=== PATIENT | male | born 1945 | race Caucasian/White ===

== ENCOUNTER → 2019-11-13 | Outpatient (CLI) | payer MEDICARE | END | disposition home or self-care (01) | LOC: RESCLI 02:14 | DX: J44.9 Chronic obstructive pulmonary disease, unspecified (principal); E55.9 Vitamin D deficiency, unspecified; I10 Essential (primary) hypertension; E11.9 Type 2 diabetes mellitus without complications; E11.40 Type 2 diabetes mellitus with diabetic neuropathy, unspecified; N40.0 Benign prostatic hyperplasia without lower urinary tract symptoms; D64.9 Anemia, unspecified; G47.30 Sleep apnea, unspecified; Z95.2 Presence of prosthetic heart valve; Z79.899 Other long term (current) drug therapy; Z98.890 Other specified postprocedural states; Z79.01 Long term (current) use of anticoagulants; Z87.891 Personal history of nicotine dependence; Z88.8 Allergy status to other drugs, medicaments and biological substances ==

== ENCOUNTER → 2019-12-16 | Outpatient (CLI) | payer MEDICARE ==
[2019-12-16 16:33] LABS: INTERNATIONAL NORM RATIO 2.7 (2.0-3.5)
== END | disposition home or self-care (01) ==
LOC: RESCLI 00:50
PROVIDERS: Internal Medicine; ATTEND Student in an Organized Health Care Education/Training Program
DX: R11.0 Nausea (principal); J44.9 Chronic obstructive pulmonary disease, unspecified; E11.42 Type 2 diabetes mellitus with diabetic polyneuropathy; G47.30 Sleep apnea, unspecified; M25.561 Pain in right knee; I10 Essential (primary) hypertension; E11.9 Type 2 diabetes mellitus without complications; E78.5 Hyperlipidemia, unspecified; Z79.01 Long term (current) use of anticoagulants; Z95.2 Presence of prosthetic heart valve; Z79.899 Other long term (current) drug therapy; Z98.890 Other specified postprocedural states; Z87.891 Personal history of nicotine dependence; Z88.8 Allergy status to other drugs, medicaments and biological substances; Z91.030 Bee allergy status

== ENCOUNTER → 2019-12-31 | Outpatient (CLI) | payer MEDICARE | END | disposition home or self-care (01) | LOC: RESCLI 10:47 | PROVIDERS: ATTEND Social Worker Clinical | DX: M25.561 Pain in right knee (principal); E11.42 Type 2 diabetes mellitus with diabetic polyneuropathy; I10 Essential (primary) hypertension; E78.5 Hyperlipidemia, unspecified; D69.6 Thrombocytopenia, unspecified; Z23 Encounter for immunization; Z79.899 Other long term (current) drug therapy; Z79.84 Long term (current) use of oral hypoglycemic drugs; Z96.651 Presence of right artificial knee joint; Z98.890 Other specified postprocedural states; Z87.891 Personal history of nicotine dependence ==

== ENCOUNTER → 2020-01-05 | Outpatient (CLI) | payer MEDICARE | END | disposition home or self-care (01) | LOC: NM 07:46 | PROVIDERS: ATTEND Internal Medicine Nephrology | DX: E11.42 Type 2 diabetes mellitus with diabetic polyneuropathy (principal); R11.0 Nausea ==

== ENCOUNTER 2020-02-18 13:19 | Emergency (ER) | payer MEDICARE ==
[~2020-02-18] VITALS: Wt 136.1 kg
[2020-02-18] MEDS ORDERED: CEPHALEXIN500 M1 PO (15:56)
[2020-02-18 16:22] LABS: INTERNATIONAL NORM RATIO 2.4 (2.0-3.5)
== END 2020-02-18 15:54 | disposition home or self-care (01) ==
LOC: ED 13:19
PROVIDERS: Physician Assistant
DX: S80.812A Abrasion, left lower leg, initial encounter (principal); Z91.030 Bee allergy status; Z88.5 Allergy status to narcotic agent; X58.XXXA Exposure to other specified factors, initial encounter; Y93.89 Activity, other specified; Y92.89 Other specified places as the place of occurrence of the external cause; Y99.8 Other external cause status

== ENCOUNTER 2020-03-16 09:32 | Emergency (ER) | payer MEDICARE ==
[~2020-03-16] VITALS: Ht 182.8 cm; Wt 136.1 kg
[~2020-03-16 09:32] MED LIST: CEPHALEXIN500 M1 PO
[2020-03-16 10:14] LABS: BASO # 0.1 10*3/uL (0.0-0.1); BASO % 0.9 % (0.0-1.0); EOS # 0.2 10*3/uL (0.0-0.4); EOS % 3.1 % (1.0-4.0); HEMATOCRIT 38.5 % (42.0-52.0); LYMPH # 1.4 10*3/uL (1.3-4.4); LYMPH % 20.6 % (27.0-41.0); MEAN CELL VOLUME 95.8 fl (80.0-94.0); MEAN CORPUSCULAR HGB 30.8 pg (27.0-31.0); MEAN CORPUSCULAR HGB CONC 32.2 g/dl (33.0-37.0); MEAN PLATELET VOLUME 12.9 fl (9.6-12.3); MONO # 0.7 10*3/uL (0.1-1.0); MONO % 10.1 % (3.0-9.0); NEUT # 4.5 10*3/uL (2.3-7.9); NEUT % 64.9 % (47.0-73.0); PLATELET COUNT AUTOMATED 92 10*3/uL (130-400); RED BLOOD COUNT 4.02 10*6/uL (4.50-5.90); RED CELL DISTRI WIDTH 13.4 % (0-14.5); WHITE BLOOD COUNT 6.9 10*3/uL (4.8-10.8)
[2020-03-16 10:23] LABS: INTERNATIONAL NORM RATIO 3.7 (2.0-3.5)
[2020-03-16 10:30] LABS: ALBUMIN 3.4 gm/dl (3.1-4.5); ALKALINE PHOSPHATASE 76 U/L (45-117); BUN 14 mg/dl (7-24); CHLORIDE 108 mmol/L (98-107); CREATININE 1.09 mg/dL (0.70-1.30); POTASSIUM 4.6 mmol/L (3.5-5.1); SGOT/AST 35 IU/L (3-35); SGPT/ALT 25 U/L (12-78); SODIUM 137 mmol/L (136-145); TOTAL PROTEIN 7.4 gm/dL (6.4-8.2)
== END 2020-03-16 11:44 | disposition home or self-care (01) ==
LOC: ED 09:32
PROVIDERS: Nurse Practitioner Family
DX: R04.0 Epistaxis (principal); I10 Essential (primary) hypertension; E11.9 Type 2 diabetes mellitus without complications; J44.9 Chronic obstructive pulmonary disease, unspecified; E78.00 Pure hypercholesterolemia, unspecified; G62.9 Polyneuropathy, unspecified; Z79.01 Long term (current) use of anticoagulants; Z91.013 Allergy to seafood; Z88.5 Allergy status to narcotic agent; Z79.2 Long term (current) use of antibiotics

== ENCOUNTER → 2020-03-19 | Outpatient (CLI) | payer MEDICARE ==
[2020-03-19 12:15] LABS: INTERNATIONAL NORM RATIO 1.8 (2.0-3.5)
== END | disposition home or self-care (01) ==
LOC: LAB 11:45
PROVIDERS: Student in an Organized Health Care Education/Training Program; ATTEND Internal Medicine
DX: Z79.01 Long term (current) use of anticoagulants (principal); Z95.4 Presence of other heart-valve replacement

== ENCOUNTER → 2020-03-23 | Outpatient (CLI) | payer MEDICARE ==
[2020-03-23 11:21] LABS: INTERNATIONAL NORM RATIO 3.1 (2.0-3.5)
== END | disposition home or self-care (01) ==
LOC: LAB 10:05
PROVIDERS: ATTEND Emergency Medicine
DX: Z79.01 Long term (current) use of anticoagulants (principal); Z95.4 Presence of other heart-valve replacement

== ENCOUNTER → 2020-03-29 | Outpatient (CLI) | payer MEDICARE | END | disposition home or self-care (01) | LOC: LAB 11:48 | PROVIDERS: ATTEND Student in an Organized Health Care Education/Training Program | DX: Z95.4 Presence of other heart-valve replacement (principal); Z79.01 Long term (current) use of anticoagulants ==

== ENCOUNTER → 2020-03-30 | Outpatient (CLI) | payer MEDICARE | END | disposition home or self-care (01) | LOC: RESCLI 00:19 | PROVIDERS: ATTEND Internal Medicine | DX: I10 Essential (primary) hypertension (principal); E11.9 Type 2 diabetes mellitus without complications; R79.1 Abnormal coagulation profile; E78.5 Hyperlipidemia, unspecified; G47.30 Sleep apnea, unspecified; D64.9 Anemia, unspecified; R11.0 Nausea; E11.42 Type 2 diabetes mellitus with diabetic polyneuropathy; Z79.01 Long term (current) use of anticoagulants; Z79.899 Other long term (current) drug therapy; Z88.8 Allergy status to other drugs, medicaments and biological substances ==

== ENCOUNTER → 2020-04-01 | Outpatient (CLI) | payer MEDICARE ==
[2020-04-01 09:42] LABS: INTERNATIONAL NORM RATIO 2.7 (2.0-3.5)
== END | disposition home or self-care (01) ==
LOC: LAB 09:11
PROVIDERS: Student in an Organized Health Care Education/Training Program; ATTEND Internal Medicine
DX: E11.9 Type 2 diabetes mellitus without complications (principal); D68.59 Other primary thrombophilia

== ENCOUNTER → 2020-04-06 | Outpatient (CLI) | payer MEDICARE ==
[2020-04-06 10:40] LABS: INTERNATIONAL NORM RATIO 2.2 (2.0-3.5)
== END | disposition home or self-care (01) ==
LOC: LAB 09:52
PROVIDERS: ATTEND Student in an Organized Health Care Education/Training Program
DX: Z79.01 Long term (current) use of anticoagulants (principal); Z95.4 Presence of other heart-valve replacement

== ENCOUNTER → 2020-04-14 | Outpatient (CLI) | payer MEDICARE ==
[2020-04-14 12:26] LABS: INTERNATIONAL NORM RATIO 3.3 (2.0-3.5)
== END | disposition home or self-care (01) ==
LOC: LAB 11:38
PROVIDERS: Student in an Organized Health Care Education/Training Program; ATTEND Internal Medicine
DX: Z79.01 Long term (current) use of anticoagulants (principal); Z95.4 Presence of other heart-valve replacement

== ENCOUNTER → 2020-04-20 | Outpatient (CLI) | payer MEDICARE ==
[2020-04-20 12:01] LABS: INTERNATIONAL NORM RATIO 3.3 (2.0-3.5)
== END | disposition home or self-care (01) ==
LOC: LAB 11:15
PROVIDERS: Student in an Organized Health Care Education/Training Program; ATTEND Emergency Medicine
DX: Z79.01 Long term (current) use of anticoagulants (principal); Z95.4 Presence of other heart-valve replacement

== ENCOUNTER → 2020-04-28 | Outpatient (CLI) | payer MEDICARE ==
[2020-04-28 12:36] LABS: INTERNATIONAL NORM RATIO 3.1 (2.0-3.5)
== END | disposition home or self-care (01) ==
LOC: LAB 11:40
PROVIDERS: ATTEND Student in an Organized Health Care Education/Training Program
DX: Z79.01 Long term (current) use of anticoagulants (principal); Z95.4 Presence of other heart-valve replacement

== ENCOUNTER → 2020-05-04 | Outpatient (CLI) | payer MEDICARE ==
[2020-05-04 11:59] LABS: BASO % 0.6 % (0.0-1.0); EOS # 0.1 10*3/uL (0.0-0.4); EOS % 2.1 % (1.0-4.0); HEMATOCRIT 38.1 % (42.0-52.0); LYMPH # 1.2 10*3/uL (1.3-4.4); LYMPH % 19.6 % (27.0-41.0); MEAN CELL VOLUME 93.6 fl (80.0-94.0); MEAN CORPUSCULAR HGB 30.2 pg (27.0-31.0); MEAN CORPUSCULAR HGB CONC 32.3 g/dl (33.0-37.0); MONO # 0.6 10*3/uL (0.1-1.0); NEUT # 4.2 10*3/uL (2.3-7.9); NEUT % 68.2 % (47.0-73.0); PLATELET COUNT AUTOMATED 95 10*3/uL (130-400); RED BLOOD COUNT 4.07 10*6/uL (4.50-5.90); RED CELL DISTRI WIDTH 13.3 % (0-14.5); WHITE BLOOD COUNT 6.2 10*3/uL (4.8-10.8)
[2020-05-04 12:11] LABS: INTERNATIONAL NORM RATIO 3.8 (2.0-3.5)
[2020-05-04 12:28] LABS: ALBUMIN 3.4 gm/dl (3.1-4.5); ALKALINE PHOSPHATASE 76 U/L (45-117); BUN 19 mg/dl (7-24); CHLORIDE 105 mmol/L (98-107); POTASSIUM 4.8 mmol/L (3.5-5.1); SGOT/AST 30 IU/L (3-35); SGPT/ALT 27 U/L (12-78); SODIUM 136 mmol/L (136-145); TOTAL PROTEIN 7.5 gm/dL (6.4-8.2)
== END | disposition home or self-care (01) ==
LOC: LAB 10:44
PROVIDERS: Student in an Organized Health Care Education/Training Program; ATTEND Emergency Medicine
DX: I10 Essential (primary) hypertension (principal); Z95.4 Presence of other heart-valve replacement; Z79.01 Long term (current) use of anticoagulants

== ENCOUNTER → 2020-05-06 | Outpatient (CLI) | payer MEDICARE | END | disposition home or self-care (01) | LOC: RESCLI 08:35 | PROVIDERS: ATTEND Internal Medicine Nephrology | DX: E11.9 Type 2 diabetes mellitus without complications (principal); E78.5 Hyperlipidemia, unspecified; I10 Essential (primary) hypertension; J44.9 Chronic obstructive pulmonary disease, unspecified; Z95.2 Presence of prosthetic heart valve; Z79.84 Long term (current) use of oral hypoglycemic drugs; Z79.899 Other long term (current) drug therapy; Z88.6 Allergy status to analgesic agent; Z88.8 Allergy status to other drugs, medicaments and biological substances; Z89.432 Acquired absence of left foot ==

== ENCOUNTER → 2020-05-12 | Outpatient (CLI) | payer MEDICARE ==
[2020-05-12 12:23] LABS: INTERNATIONAL NORM RATIO 2.9 (2.0-3.5)
[2020-05-13 12:07] LABS: CREATININE,URINE 84.8 mg/dL (Not Estab.)
== END | disposition home or self-care (01) ==
LOC: LAB 10:40
PROVIDERS: ATTEND Student in an Organized Health Care Education/Training Program
DX: E11.9 Type 2 diabetes mellitus without complications (principal); Z79.01 Long term (current) use of anticoagulants; Z95.4 Presence of other heart-valve replacement

== ENCOUNTER → 2020-05-17 | Outpatient (CLI) | payer MEDICARE ==
[2020-05-17 11:10] LABS: INTERNATIONAL NORM RATIO 2.6 (2.0-3.5)
== END | disposition home or self-care (01) ==
LOC: LAB 10:44
PROVIDERS: ATTEND Internal Medicine Nephrology
DX: Z79.01 Long term (current) use of anticoagulants (principal); Z95.4 Presence of other heart-valve replacement

== ENCOUNTER → 2020-05-26 | Outpatient (CLI) | payer MEDICARE ==
[2020-05-26 12:20] LABS: INTERNATIONAL NORM RATIO 2.7 (2.0-3.5)
== END | disposition home or self-care (01) ==
LOC: LAB 11:53
PROVIDERS: ATTEND Internal Medicine
DX: Z79.01 Long term (current) use of anticoagulants (principal); Z95.4 Presence of other heart-valve replacement

== ENCOUNTER → 2020-06-01 | Outpatient (CLI) | payer MEDICARE ==
[2020-06-01 11:58] LABS: INTERNATIONAL NORM RATIO 3.5 (2.0-3.5)
== END | disposition home or self-care (01) ==
LOC: LAB 11:07
PROVIDERS: ATTEND Student in an Organized Health Care Education/Training Program
DX: D69.6 Thrombocytopenia, unspecified (principal); D68.59 Other primary thrombophilia; Z79.01 Long term (current) use of anticoagulants

== ENCOUNTER → 2020-06-04 | Outpatient (CLI) | payer MEDICARE | END | disposition home or self-care (01) | LOC: RAD 01:00 | PROVIDERS: ATTEND Internal Medicine | DX: M25.561 Pain in right knee (principal); Z96.651 Presence of right artificial knee joint ==

== ENCOUNTER → 2020-06-17 | Outpatient (CLI) | payer MEDICARE ==
[2020-06-17 10:40] LABS: INTERNATIONAL NORM RATIO 3.3 (2.0-3.5)
== END | disposition home or self-care (01) ==
LOC: LAB 10:11
PROVIDERS: ATTEND Internal Medicine Nephrology
DX: D68.59 Other primary thrombophilia (principal); D69.6 Thrombocytopenia, unspecified; Z79.01 Long term (current) use of anticoagulants

== ENCOUNTER → 2020-07-13 | Outpatient (CLI) | payer MEDICARE ==
[2020-07-13 11:29] LABS: INTERNATIONAL NORM RATIO 3.1 (2.0-3.5)
== END | disposition home or self-care (01) ==
LOC: LAB 10:43
PROVIDERS: ATTEND Student in an Organized Health Care Education/Training Program
DX: D68.59 Other primary thrombophilia (principal); D69.6 Thrombocytopenia, unspecified; Z79.01 Long term (current) use of anticoagulants

== ENCOUNTER → 2020-07-14 | Outpatient (CLI) | payer MEDICARE | END | disposition home or self-care (01) | LOC: RESCLI 01:40 | PROVIDERS: ATTEND Internal Medicine Nephrology | DX: R42 Dizziness and giddiness (principal); I10 Essential (primary) hypertension; E11.9 Type 2 diabetes mellitus without complications; E78.5 Hyperlipidemia, unspecified; E55.9 Vitamin D deficiency, unspecified; L98.9 Disorder of the skin and subcutaneous tissue, unspecified; E11.42 Type 2 diabetes mellitus with diabetic polyneuropathy; K21.9 Gastro-esophageal reflux disease without esophagitis; Z95.2 Presence of prosthetic heart valve; Z79.84 Long term (current) use of oral hypoglycemic drugs; Z79.899 Other long term (current) drug therapy; Z98.890 Other specified postprocedural states; Z88.8 Allergy status to other drugs, medicaments and biological substances ==

== ENCOUNTER → 2020-07-16 | Outpatient (CLI) | payer MEDICARE ==
[2020-07-16 09:31] LABS: CHOLESTEROL 172 mg/dL (<200); HDL CHOLESTEROL 33 mg/dl (40-60); LDL CHOLESTEROL 113 mg/dL (9-159); TRIGLYCERIDES 128 mg/dl (<150); VLDL CHOLESTEROL 26 mg/dL (6-40)
== END | disposition home or self-care (01) ==
LOC: LAB 00:46
PROVIDERS: Student in an Organized Health Care Education/Training Program; ATTEND Family Medicine
DX: E78.5 Hyperlipidemia, unspecified (principal); E55.9 Vitamin D deficiency, unspecified; E11.9 Type 2 diabetes mellitus without complications

== ENCOUNTER → 2020-08-02 | Outpatient (CLI) | payer MEDICARE ==
[2020-08-02 13:32] LABS: INTERNATIONAL NORM RATIO 4.8 (2.0-3.5)
== END | disposition home or self-care (01) ==
LOC: LAB 11:11
PROVIDERS: Student in an Organized Health Care Education/Training Program; ATTEND Internal Medicine Nephrology
DX: D68.59 Other primary thrombophilia (principal); D69.6 Thrombocytopenia, unspecified; Z79.01 Long term (current) use of anticoagulants

== ENCOUNTER → 2020-08-05 | Outpatient (CLI) | payer MEDICARE ==
[2020-08-05 11:17] LABS: INTERNATIONAL NORM RATIO 2.5 (2.0-3.5)
== END | disposition home or self-care (01) ==
LOC: LAB 10:43
PROVIDERS: Student in an Organized Health Care Education/Training Program; ATTEND Internal Medicine Nephrology
DX: D68.8 Other specified coagulation defects (principal)

== ENCOUNTER → 2020-08-12 | Outpatient (CLI) | payer MEDICARE ==
[2020-08-12 11:41] LABS: INTERNATIONAL NORM RATIO 3.8 (2.0-3.5)
== END | disposition home or self-care (01) ==
LOC: LAB 11:12
PROVIDERS: Student in an Organized Health Care Education/Training Program; ATTEND Internal Medicine
DX: D68.59 Other primary thrombophilia (principal); D69.6 Thrombocytopenia, unspecified; Z79.01 Long term (current) use of anticoagulants

== ENCOUNTER → 2020-08-17 | Outpatient (CLI) | payer MEDICARE ==
[2020-08-17 12:18] LABS: INTERNATIONAL NORM RATIO 3.5 (2.0-3.5)
== END | disposition home or self-care (01) ==
LOC: LAB 11:26
PROVIDERS: Student in an Organized Health Care Education/Training Program; ATTEND Internal Medicine
DX: D68.59 Other primary thrombophilia (principal); D69.6 Thrombocytopenia, unspecified; Z79.01 Long term (current) use of anticoagulants

== ENCOUNTER → 2020-08-19 | Outpatient (CLI) | payer MEDICARE | END | disposition home or self-care (01) | LOC: RESCLI 02:04 | PROVIDERS: ATTEND Internal Medicine | DX: E78.5 Hyperlipidemia, unspecified (principal); E11.42 Type 2 diabetes mellitus with diabetic polyneuropathy; I10 Essential (primary) hypertension; J44.9 Chronic obstructive pulmonary disease, unspecified; E55.9 Vitamin D deficiency, unspecified; N40.0 Benign prostatic hyperplasia without lower urinary tract symptoms; D64.9 Anemia, unspecified; K21.9 Gastro-esophageal reflux disease without esophagitis; Z95.2 Presence of prosthetic heart valve; Z79.899 Other long term (current) drug therapy; Z98.890 Other specified postprocedural states; Z88.8 Allergy status to other drugs, medicaments and biological substances ==

== ENCOUNTER → 2020-08-24 | Outpatient (CLI) | payer MEDICARE | END | disposition home or self-care (01) | LOC: LAB 08:35 | PROVIDERS: ATTEND Student in an Organized Health Care Education/Training Program | DX: D64.9 Anemia, unspecified (principal) ==

== ENCOUNTER → 2020-09-24 | Outpatient (CLI) | payer MEDICARE ==
[2020-09-24 12:33] LABS: INTERNATIONAL NORM RATIO 2.7 (2.0-3.5)
== END | disposition home or self-care (01) ==
LOC: LAB 11:51
PROVIDERS: Student in an Organized Health Care Education/Training Program; ATTEND Family Medicine
DX: D68.59 Other primary thrombophilia (principal); D69.6 Thrombocytopenia, unspecified; Z79.01 Long term (current) use of anticoagulants

== ENCOUNTER → 2020-10-05 | Outpatient (CLI) | payer MEDICARE | END | disposition home or self-care (01) | LOC: CT 13:43 | PROVIDERS: ATTEND Internal Medicine Critical Care Medicine | DX: I51.7 Cardiomegaly (principal); K76.0 Fatty (change of) liver, not elsewhere classified; I25.10 Atherosclerotic heart disease of native coronary artery without angina pectoris ==

== ENCOUNTER → 2020-10-12 | Outpatient (CLI) | payer MEDICARE ==
[2020-10-12 12:20] LABS: INTERNATIONAL NORM RATIO 1.7 (2.0-3.5)
== END | disposition home or self-care (01) ==
LOC: LAB 10:36
PROVIDERS: ATTEND Student in an Organized Health Care Education/Training Program
DX: D68.59 Other primary thrombophilia (principal); D69.6 Thrombocytopenia, unspecified; Z79.01 Long term (current) use of anticoagulants

== ENCOUNTER → 2020-10-15 | Outpatient (CLI) | payer MEDICARE ==
[2020-10-15 11:50] LABS: INTERNATIONAL NORM RATIO 2.1 (2.0-3.5)
== END | disposition home or self-care (01) ==
LOC: LAB 11:19
PROVIDERS: Student in an Organized Health Care Education/Training Program; ATTEND Internal Medicine
DX: D68.59 Other primary thrombophilia (principal); D69.6 Thrombocytopenia, unspecified; Z79.01 Long term (current) use of anticoagulants

== ENCOUNTER → 2020-10-19 | Outpatient (CLI) | payer MEDICARE ==
[2020-10-19 12:00] LABS: INTERNATIONAL NORM RATIO 3.4 (2.0-3.5)
== END | disposition home or self-care (01) ==
LOC: LAB 11:33
PROVIDERS: ATTEND Student in an Organized Health Care Education/Training Program
DX: D68.59 Other primary thrombophilia (principal); D69.6 Thrombocytopenia, unspecified; Z79.01 Long term (current) use of anticoagulants

== ENCOUNTER → 2020-10-25 | Outpatient (CLI) | payer MEDICARE ==
[2020-10-25 13:09] LABS: INTERNATIONAL NORM RATIO 5.1 (2.0-3.5)
== END | disposition home or self-care (01) ==
LOC: LAB 11:29
PROVIDERS: Student in an Organized Health Care Education/Training Program; ATTEND Internal Medicine Nephrology
DX: D69.6 Thrombocytopenia, unspecified (principal); D68.59 Other primary thrombophilia; Z79.01 Long term (current) use of anticoagulants

== ENCOUNTER → 2020-10-28 | Outpatient (CLI) | payer MEDICARE ==
[2020-10-28 11:40] LABS: INTERNATIONAL NORM RATIO 2.9 (2.0-3.5)
== END | disposition home or self-care (01) ==
LOC: LAB 10:56
PROVIDERS: ATTEND Internal Medicine
DX: D69.6 Thrombocytopenia, unspecified (principal); D68.59 Other primary thrombophilia; Z79.01 Long term (current) use of anticoagulants

== ENCOUNTER → 2020-11-09 | Outpatient (CLI) | payer MEDICARE ==
[2020-11-09 13:52] LABS: INTERNATIONAL NORM RATIO 2.3 (2.0-3.5)
== END | disposition home or self-care (01) ==
LOC: LAB 11:40
PROVIDERS: ATTEND Student in an Organized Health Care Education/Training Program
DX: D69.6 Thrombocytopenia, unspecified (principal); D68.59 Other primary thrombophilia; Z79.01 Long term (current) use of anticoagulants

== ENCOUNTER → 2020-11-17 | Outpatient (CLI) | payer MEDICARE ==
[2020-11-17 11:10] LABS: INTERNATIONAL NORM RATIO 3.2 (2.0-3.5)
== END | disposition home or self-care (01) ==
LOC: LAB 10:43
PROVIDERS: ATTEND Student in an Organized Health Care Education/Training Program
DX: D68.59 Other primary thrombophilia (principal); Z79.01 Long term (current) use of anticoagulants

== ENCOUNTER → 2020-12-03 | Outpatient (CLI) | payer MEDICARE ==
[2020-12-03 11:27] LABS: INTERNATIONAL NORM RATIO 1.9 (2.0-3.5)
== END | disposition home or self-care (01) ==
LOC: LAB 10:47
PROVIDERS: Student in an Organized Health Care Education/Training Program; ATTEND Internal Medicine
DX: D69.6 Thrombocytopenia, unspecified (principal); D68.59 Other primary thrombophilia; Z79.01 Long term (current) use of anticoagulants

== ENCOUNTER → 2021-02-08 | Outpatient (CLI) | payer MEDICARE ==
[2021-02-08 11:52] LABS: INTERNATIONAL NORM RATIO 1.9 (2.0-3.5)
== END | disposition home or self-care (01) ==
LOC: LAB 11:21
PROVIDERS: Student in an Organized Health Care Education/Training Program; ATTEND Emergency Medicine
DX: D68.59 Other primary thrombophilia (principal); D69.6 Thrombocytopenia, unspecified; Z79.01 Long term (current) use of anticoagulants

== ENCOUNTER → 2021-02-28 | Outpatient (CLI) | payer MEDICARE | END | disposition home or self-care (01) | LOC: LAB 08:00 | PROVIDERS: ATTEND Nurse Practitioner Primary Care | DX: D50.9 Iron deficiency anemia, unspecified (principal) ==

== ENCOUNTER → 2021-02-28 | Outpatient (CLI) | payer MEDICARE | END | disposition home or self-care (01) | LOC: CARD 02:16 | PROVIDERS: ATTEND Nurse Practitioner Primary Care | DX: I10 Essential (primary) hypertension (principal); Z95.2 Presence of prosthetic heart valve ==

== ENCOUNTER → 2021-05-31 | Outpatient (CLI) | payer MEDICARE ==
[2021-05-31 15:13] LABS: INTERNATIONAL NORM RATIO 2.1 (2.0-3.5)
== END ==
LOC: LAB 14:48
PROVIDERS: ATTEND Internal Medicine
DX: Z95.2 Presence of prosthetic heart valve (principal)

== ENCOUNTER → 2021-06-08 | Outpatient (CLI) | payer MEDICARE | END | disposition home or self-care (01) | LOC: US 08:42 | PROVIDERS: ATTEND Internal Medicine | DX: K76.0 Fatty (change of) liver, not elsewhere classified (principal); R16.1 Splenomegaly, not elsewhere classified; E61.1 Iron deficiency; D69.6 Thrombocytopenia, unspecified ==

== ENCOUNTER → 2021-09-01 | Outpatient (CLI) | payer MEDICARE ==
[2021-09-01 12:56] LABS: BASO # 0.1 10*3/uL (0.0-0.1); BASO % 1.1 % (0.0-1.0); EOS # 0.2 10*3/uL (0.0-0.4); EOS % 2.9 % (1.0-4.0); HEMATOCRIT 50.3 % (42.0-52.0); LYMPH # 1.8 10*3/uL (1.3-4.4); LYMPH % 24.2 % (27.0-41.0); MEAN CELL VOLUME 94.9 fl (80.0-94.0); MEAN CORPUSCULAR HGB 31.7 pg (27.0-31.0); MEAN CORPUSCULAR HGB CONC 33.4 g/dl (33.0-37.0); MEAN PLATELET VOLUME 11.3 fl (9.6-12.3); MONO # 0.8 10*3/uL (0.1-1.0); MONO % 10.6 % (3.0-9.0); NEUT # 4.4 10*3/uL (2.3-7.9); NEUT % 60.5 % (47.0-73.0); PLATELET COUNT AUTOMATED 91 10*3/uL (130-400); RED CELL DISTRI WIDTH 16.4 % (0-14.5); RETICULOCYTE % 2.14 % (0.50-2.50); WHITE BLOOD COUNT 7.3 10*3/uL (4.8-10.8)
[2021-09-01 13:00] LABS: INTERNATIONAL NORM RATIO 2.5 (2.0-3.5)
[2021-09-01 13:06] LABS: BUN 14 mg/dl (7-24); CHLORIDE 107 mmol/L (98-107); CHOLESTEROL 166 mg/dL (<200); IRON 66 ug/dL (65-175); SGOT/AST 25 IU/L (3-35); SGPT/ALT 28 U/L (12-78); SODIUM 137 mmol/L (136-145); TOTAL IRON BINDING CAPACITY 403 ug/dl (250-450); TRIGLYCERIDES 99 mg/dl (<150)
[2021-09-01 13:07] LABS: ALKALINE PHOSPHATASE 83 U/L (45-117); LDL CHOLESTEROL 105 mg/dL (9-159); TOTAL PROTEIN 7.8 gm/dL (6.4-8.2)
[2021-09-02 10:08] LABS: CREATININE,URINE 70.5 mg/dL (Not Estab.)
== END | disposition home or self-care (01) ==
LOC: RESCLI 01:42
PROVIDERS: Student in an Organized Health Care Education/Training Program; ATTEND Internal Medicine
DX: E11.9 Type 2 diabetes mellitus without complications (principal); I10 Essential (primary) hypertension; D50.9 Iron deficiency anemia, unspecified; Z95.2 Presence of prosthetic heart valve

== ENCOUNTER → 2021-09-27 | Outpatient (CLI) | payer MEDICARE ==
[2021-09-27 11:58] LABS: INTERNATIONAL NORM RATIO 2.1 (2.0-3.5)
== END | disposition home or self-care (01) ==
LOC: LAB 11:26
PROVIDERS: Student in an Organized Health Care Education/Training Program; ATTEND Internal Medicine
DX: Z95.2 Presence of prosthetic heart valve (principal)

== ENCOUNTER → 2021-09-29 | Outpatient (CLI) | payer MEDICARE ==
[~2021-09-29] MED LIST changes: +AMOXICILLIN500 M3 PO; +CEFTRIAXON2 GM/50 ML IV; +ENALAPRIL5 MG PO; +ENOXAPARIN150 MG/1 M SC; +FLORASTOR250 MG PO; +GABAPENTIN100 M2 PO; +GLIPIZIDE5 MG PO; +IMODIUM A-D2 M2 PO; +JARDIANCE10 MG PO; +METFORMIN HCL500 M2 PO; +METOPROLOL25 MG PO; +NEURONTIN100 MG PO; +PERCOCET 5-3251 EACH PO; +PROAIR HFA8.5 GM INH; +PROTONIX40 MG PO; +TAMSULOSIN HCL0.4 MG PO; +VIBRAMYCIN HYC100 MG PO; +WARFARIN SOD5 MG PO
[2021-09-29 11:57] LABS: HEMATOCRIT 47.6 % (42.0-52.0); MEAN CELL VOLUME 96.7 fl (80.0-94.0); MEAN CORPUSCULAR HGB 32.5 pg (27.0-31.0); MEAN CORPUSCULAR HGB CONC 33.6 g/dl (33.0-37.0); MEAN PLATELET VOLUME 12.4 fl (9.6-12.3); PLATELET COUNT AUTOMATED 112 10*3/uL (130-400); RED BLOOD COUNT 4.92 10*6/uL (4.50-5.90); RED CELL DISTRI WIDTH 13.5 % (0-14.5); WHITE BLOOD COUNT 7.7 10*3/uL (4.8-10.8)
[2021-09-29 12:16] LABS: BASOPHILS 3 % (0-1); BURR CELLS FEW; PLATELET SUFFICIENCY LOW (NORMAL); POLYCHROMASIA SLIGHT; TOTAL CELLS COUNTED 100 #CELLS
== END | disposition home or self-care (01) ==
LOC: RESCLI 09:50
PROVIDERS: Student in an Organized Health Care Education/Training Program; ATTEND Internal Medicine
DX: I10 Essential (primary) hypertension (principal); R21 Rash and other nonspecific skin eruption; E11.42 Type 2 diabetes mellitus with diabetic polyneuropathy; E55.9 Vitamin D deficiency, unspecified; J44.9 Chronic obstructive pulmonary disease, unspecified; N40.0 Benign prostatic hyperplasia without lower urinary tract symptoms; G47.30 Sleep apnea, unspecified; E78.5 Hyperlipidemia, unspecified; K21.9 Gastro-esophageal reflux disease without esophagitis; J30.2 Other seasonal allergic rhinitis; D50.9 Iron deficiency anemia, unspecified; H61.20 Impacted cerumen, unspecified ear; E11.52 Type 2 diabetes mellitus with diabetic peripheral angiopathy with gangrene; Z79.01 Long term (current) use of anticoagulants; Z95.2 Presence of prosthetic heart valve; Z79.899 Other long term (current) drug therapy; Z88.8 Allergy status to other drugs, medicaments and biological substances

== ENCOUNTER 2021-10-16 12:49 | Emergency (ER) | payer MEDICARE ==
[~2021-10-16] VITALS: Wt 131.5 kg
[~2021-10-16 12:49] MED LIST changes: -AMOXICILLIN500 M3 PO; -CEFTRIAXON2 GM/50 ML IV; -ENALAPRIL5 MG PO; -ENOXAPARIN150 MG/1 M SC; -FLORASTOR250 MG PO; -GABAPENTIN100 M2 PO; -GLIPIZIDE5 MG PO; -IMODIUM A-D2 M2 PO; -JARDIANCE10 MG PO; -METFORMIN HCL500 M2 PO; -METOPROLOL25 MG PO; -NEURONTIN100 MG PO; -PERCOCET 5-3251 EACH PO; -PROAIR HFA8.5 GM INH; -PROTONIX40 MG PO; -TAMSULOSIN HCL0.4 MG PO; -VIBRAMYCIN HYC100 MG PO; -WARFARIN SOD5 MG PO
[2021-10-16 13:55] LABS: BASO # 0.1 10*3/uL (0.0-0.1); BASO % 1.2 % (0.0-1.0); EOS # 0.3 10*3/uL (0.0-0.4); EOS % 3.6 % (1.0-4.0); HEMATOCRIT 44.5 % (42.0-52.0); LYMPH # 1.6 10*3/uL (1.3-4.4); LYMPH % 21.7 % (27.0-41.0); MEAN CELL VOLUME 96.7 fl (80.0-94.0); MEAN CORPUSCULAR HGB CONC 34.2 g/dl (33.0-37.0); MEAN PLATELET VOLUME 11.8 fl (9.6-12.3); MONO # 0.9 10*3/uL (0.1-1.0); MONO % 12.2 % (3.0-9.0); NEUT # 4.5 10*3/uL (2.3-7.9); NEUT % 60.8 % (47.0-73.0); PLATELET COUNT AUTOMATED 97 10*3/uL (130-400); RED CELL DISTRI WIDTH 13.2 % (0-14.5); WHITE BLOOD COUNT 7.5 10*3/uL (4.8-10.8)
[2021-10-16] MEDS ORDERED: VIBRAMYCIN HYC100 MG PO (15:23)
[2021-10-16 15:31] LABS: ALKALINE PHOSPHATASE 77 U/L (45-117); BUN 14 mg/dl (7-24); CHLORIDE 106 mmol/L (98-107); POTASSIUM 4.1 mmol/L (3.5-5.1); SGOT/AST 31 IU/L (3-35); SGPT/ALT 25 U/L (12-78); SODIUM 137 mmol/L (136-145)
== END 2021-10-16 15:32 | disposition home or self-care (01) ==
LOC: ED 12:49
PROVIDERS: Internal Medicine
DX: S91.301A Unspecified open wound, right foot, initial encounter (principal); Z91.030 Bee allergy status; Z88.8 Allergy status to other drugs, medicaments and biological substances; X58.XXXA Exposure to other specified factors, initial encounter; Y93.89 Activity, other specified; Y92.89 Other specified places as the place of occurrence of the external cause; Y99.8 Other external cause status

== ENCOUNTER → 2021-10-21 | Outpatient (CLI) | payer MEDICARE ==
[~2021-10-21] MED LIST changes: +VIBRAMYCIN HYC100 MG PO
== END | disposition home or self-care (01) ==
LOC: WOUNDCARE 01:33
PROVIDERS: ATTEND Nurse Practitioner Family
DX: E11.621 Type 2 diabetes mellitus with foot ulcer (principal); L97.811 Non-pressure chronic ulcer of other part of right lower leg limited to breakdown of skin; E11.40 Type 2 diabetes mellitus with diabetic neuropathy, unspecified; I10 Essential (primary) hypertension; E78.5 Hyperlipidemia, unspecified; J44.9 Chronic obstructive pulmonary disease, unspecified; Z98.890 Other specified postprocedural states; Z90.49 Acquired absence of other specified parts of digestive tract; Z79.899 Other long term (current) drug therapy; Z87.891 Personal history of nicotine dependence

== ENCOUNTER → 2021-10-26 | Outpatient (CLI) | payer MEDICARE ==
[~2021-10-26] MED LIST changes: +AMOXICILLIN500 M3 PO; +CEFTRIAXON2 GM/50 ML IV; +ENALAPRIL5 MG PO; +ENOXAPARIN150 MG/1 M SC; +FLORASTOR250 MG PO; +GABAPENTIN100 M2 PO; +GLIPIZIDE5 MG PO; +IMODIUM A-D2 M2 PO; +JARDIANCE10 MG PO; +METFORMIN HCL500 M2 PO; +METOPROLOL25 MG PO; +NEURONTIN100 MG PO; +PERCOCET 5-3251 EACH PO; +PROAIR HFA8.5 GM INH; +PROTONIX40 MG PO; +TAMSULOSIN HCL0.4 MG PO; +WARFARIN SOD5 MG PO
== END | disposition home or self-care (01) ==
LOC: WOUNDCARE 02:57
PROVIDERS: ATTEND Nurse Practitioner Family
DX: E11.621 Type 2 diabetes mellitus with foot ulcer (principal); L97.511 Non-pressure chronic ulcer of other part of right foot limited to breakdown of skin; E11.40 Type 2 diabetes mellitus with diabetic neuropathy, unspecified; I10 Essential (primary) hypertension; E78.5 Hyperlipidemia, unspecified; J44.9 Chronic obstructive pulmonary disease, unspecified; Z98.890 Other specified postprocedural states; Z90.49 Acquired absence of other specified parts of digestive tract; Z79.899 Other long term (current) drug therapy; Z87.891 Personal history of nicotine dependence

== ENCOUNTER → 2021-11-02 | Outpatient (CLI) | payer MEDICARE | END | disposition home or self-care (01) | LOC: WOUNDCARE 01:28 | PROVIDERS: ATTEND Nurse Practitioner Family | DX: E11.621 Type 2 diabetes mellitus with foot ulcer (principal); L97.512 Non-pressure chronic ulcer of other part of right foot with fat layer exposed; L84 Corns and callosities; E11.40 Type 2 diabetes mellitus with diabetic neuropathy, unspecified; E78.5 Hyperlipidemia, unspecified; I10 Essential (primary) hypertension; J44.9 Chronic obstructive pulmonary disease, unspecified; Z90.49 Acquired absence of other specified parts of digestive tract; Z87.891 Personal history of nicotine dependence ==

== ENCOUNTER 2021-12-19 12:19 | Emergency (ER) | payer MEDICARE ==
[~2021-12-19] VITALS: Ht 182.8 cm; Wt 130.6 kg
[~2021-12-19 12:19] MED LIST changes: +ENOXAPARIN120 MG/0.2 SC
== END 2021-12-19 15:16 ==
LOC: ED 12:19
DX: S80.01XA Contusion of right knee, initial encounter (principal); J44.9 Chronic obstructive pulmonary disease, unspecified; E11.42 Type 2 diabetes mellitus with diabetic polyneuropathy; I10 Essential (primary) hypertension; K21.9 Gastro-esophageal reflux disease without esophagitis; E78.2 Mixed hyperlipidemia; E66.9 Obesity, unspecified; Z91.030 Bee allergy status; Z88.5 Allergy status to narcotic agent; Z79.2 Long term (current) use of antibiotics; Z79.899 Other long term (current) drug therapy; Z79.01 Long term (current) use of anticoagulants; Z68.30 Body mass index [BMI] 30.0-30.9, adult; Z96.653 Presence of artificial knee joint, bilateral; Z90.49 Acquired absence of other specified parts of digestive tract; Z98.890 Other specified postprocedural states; Z89.422 Acquired absence of other left toe(s); Z87.891 Personal history of nicotine dependence; X58.XXXA Exposure to other specified factors, initial encounter; Y93.89 Activity, other specified; Y92.89 Other specified places as the place of occurrence of the external cause; Y99.8 Other external cause status

== ENCOUNTER → 2021-12-28 | Outpatient (CLI) | payer MEDICARE | END | disposition home or self-care (01) | LOC: ORTHO 02:38 | PROVIDERS: ATTEND Orthopaedic Surgery | DX: T84.53XD Infection and inflammatory reaction due to internal right knee prosthesis, subsequent encounter (principal); M25.461 Effusion, right knee; X58.XXXD Exposure to other specified factors, subsequent encounter ==

== ENCOUNTER 2022-01-10 15:53 | Emergency (ER) | payer MEDICARE ==
[~2022-01-10] VITALS: Ht 182.8 cm; Wt 130.6 kg
[2022-01-10 17:52] LABS: BASO # 0.1 10*3/uL (0.0-0.1); EOS # 0.3 10*3/uL (0.0-0.4); EOS % 3.9 % (1.0-4.0); HEMATOCRIT 36.1 % (42.0-52.0); LYMPH # 1.2 10*3/uL (1.3-4.4); LYMPH % 17.1 % (27.0-41.0); MEAN CELL VOLUME 95.8 fl (80.0-94.0); MEAN CORPUSCULAR HGB 31.6 pg (27.0-31.0); MEAN PLATELET VOLUME 12.4 fl (9.6-12.3); MONO # 0.7 10*3/uL (0.1-1.0); MONO % 9.6 % (3.0-9.0); NEUT # 4.7 10*3/uL (2.3-7.9); NEUT % 67.7 % (47.0-73.0); PLATELET COUNT AUTOMATED 102 10*3/uL (130-400); RED BLOOD COUNT 3.77 10*6/uL (4.50-5.90)
[2022-01-10 18:07] LABS: CREATININE 1.77 mg/dL (0.70-1.30); POTASSIUM 3.7 mmol/L (3.5-5.1); TOTAL PROTEIN 7.3 gm/dL (6.4-8.2)
[2022-01-10 18:16] LABS: INTERNATIONAL NORM RATIO 4.8 (2.0-3.5)
== END 2022-01-10 19:50 | disposition home or self-care (01) ==
LOC: ED 15:53
PROVIDERS: Student in an Organized Health Care Education/Training Program
DX: S00.03XA Contusion of scalp, initial encounter (principal); M25.552 Pain in left hip; M25.551 Pain in right hip; M25.461 Effusion, right knee; D53.9 Nutritional anemia, unspecified; Z88.6 Allergy status to analgesic agent; Z79.899 Other long term (current) drug therapy; Z90.49 Acquired absence of other specified parts of digestive tract; Z98.890 Other specified postprocedural states; Z87.891 Personal history of nicotine dependence; W18.39XA Other fall on same level, initial encounter; Y93.89 Activity, other specified; Y92.89 Other specified places as the place of occurrence of the external cause; Y99.8 Other external cause status

== ENCOUNTER → 2022-03-15 | Outpatient (CLI) | payer MEDICARE ==
[2022-03-15 11:40] LABS: INTERNATIONAL NORM RATIO 1.9 (2.0-3.5)
== END | disposition home or self-care (01) ==
LOC: LAB 11:06
PROVIDERS: Student in an Organized Health Care Education/Training Program; ATTEND Family Medicine
DX: Z95.2 Presence of prosthetic heart valve (principal)

== ENCOUNTER → 2022-04-20 | Outpatient (CLI) | payer MEDICARE ==
[2022-04-20 11:40] LABS: INTERNATIONAL NORM RATIO 2.5 (2.0-3.5)
== END | disposition home or self-care (01) ==
LOC: LAB 10:55
PROVIDERS: ATTEND Student in an Organized Health Care Education/Training Program
DX: Z95.2 Presence of prosthetic heart valve (principal)

== ENCOUNTER → 2022-05-29 | Outpatient (CLI) | payer MEDICARE | END | disposition home or self-care (01) | LOC: ORTHO 00:58 | PROVIDERS: ATTEND Orthopaedic Surgery | DX: T84.53XD Infection and inflammatory reaction due to internal right knee prosthesis, subsequent encounter (principal); M25.461 Effusion, right knee; Y83.9 Surgical procedure, unspecified as the cause of abnormal reaction of the patient, or of later complication, without mention of misadventure at the time of the procedure ==

== ENCOUNTER → 2022-06-14 | Outpatient (CLI) | payer MEDICARE ==
[2022-06-14 11:43] LABS: BASO # 0.1 10*3/uL (0.0-0.1); BASO % 0.8 % (0.0-1.0); EOS # 0.3 10*3/uL (0.0-0.4); EOS % 3.5 % (1.0-4.0); LYMPH # 1.4 10*3/uL (1.3-4.4); LYMPH % 17.9 % (27.0-41.0); MEAN CELL VOLUME 89.2 fl (80.0-94.0); MEAN CORPUSCULAR HGB 27.3 pg (27.0-31.0); MEAN CORPUSCULAR HGB CONC 30.6 g/dl (33.0-37.0); MONO # 0.7 10*3/uL (0.1-1.0); MONO % 9.1 % (3.0-9.0); NEUT # 5.3 10*3/uL (2.3-7.9); NEUT % 68.1 % (47.0-73.0); PLATELET COUNT AUTOMATED 132 10*3/uL (130-400); RED CELL DISTRI WIDTH 16.4 % (0-14.5); WHITE BLOOD COUNT 7.7 10*3/uL (4.8-10.8)
[2022-06-14 11:53] LABS: INTERNATIONAL NORM RATIO 3.7 (2.0-3.5)
[2022-06-14 12:00] LABS: POTASSIUM 3.9 mmol/L (3.4-5.1)
== END | disposition home or self-care (01) ==
LOC: RESCLI 00:42
PROVIDERS: Student in an Organized Health Care Education/Training Program; ATTEND Internal Medicine
DX: I10 Essential (primary) hypertension (principal); E11.52 Type 2 diabetes mellitus with diabetic peripheral angiopathy with gangrene; E78.5 Hyperlipidemia, unspecified; B99.9 Unspecified infectious disease; M25.78 Osteophyte, vertebrae; M48.061 Spinal stenosis, lumbar region without neurogenic claudication; I70.0 Atherosclerosis of aorta; Z88.5 Allergy status to narcotic agent; Z91.030 Bee allergy status; Z87.891 Personal history of nicotine dependence; Z95.2 Presence of prosthetic heart valve; Z98.890 Other specified postprocedural states; Z79.84 Long term (current) use of oral hypoglycemic drugs; Z79.82 Long term (current) use of aspirin; Z79.899 Other long term (current) drug therapy

== ENCOUNTER → 2022-07-12 | Outpatient (CLI) | payer MEDICARE ==
[2022-07-12 12:22] LABS: INTERNATIONAL NORM RATIO 3.4 (2.0-3.5)
== END | disposition home or self-care (01) ==
LOC: LAB 11:51
PROVIDERS: ATTEND Student in an Organized Health Care Education/Training Program
DX: Z95.2 Presence of prosthetic heart valve (principal)

== ENCOUNTER → 2022-08-28 | Outpatient (CLI) | payer MEDICARE ==
[2022-08-28 14:21] LABS: INTERNATIONAL NORM RATIO 1.7 (2.0-3.5)
== END | disposition home or self-care (01) ==
LOC: LAB 13:51
PROVIDERS: ATTEND Student in an Organized Health Care Education/Training Program
DX: Z95.2 Presence of prosthetic heart valve (principal)

== ENCOUNTER → 2022-11-29 | Outpatient (CLI) | payer MEDICARE | END | disposition home or self-care (01) | LOC: ORTHO 02:24 | PROVIDERS: ATTEND Orthopaedic Surgery | DX: T84.53XD Infection and inflammatory reaction due to internal right knee prosthesis, subsequent encounter (principal); M25.461 Effusion, right knee; Y83.1 Surgical operation with implant of artificial internal device as the cause of abnormal reaction of the patient, or of later complication, without mention of misadventure at the time of the procedure ==

== ENCOUNTER → 2023-03-12 | Outpatient (CLI) | payer MEDICARE ==
[2023-03-12 10:50] LABS: BASO # 0.1 10*3/uL (0.0-0.1); BASO % 0.9 % (0.0-1.0); EOS # 0.4 10*3/uL (0.0-0.4); HEMATOCRIT 29.3 % (42.0-52.0); LYMPH # 1.5 10*3/uL (1.3-4.4); LYMPH % 17.4 % (27.0-41.0); MEAN CELL VOLUME 89.6 fl (80.0-94.0); MEAN CORPUSCULAR HGB 27.8 pg (27.0-31.0); MEAN CORPUSCULAR HGB CONC 31.1 g/dl (33.0-37.0); MEAN PLATELET VOLUME 12.8 fl (9.6-12.3); MONO # 0.9 10*3/uL (0.1-1.0); MONO % 10.2 % (3.0-9.0); NEUT # 5.8 10*3/uL (2.3-7.9); NEUT % 66.7 % (47.0-73.0); PLATELET COUNT AUTOMATED 139 10*3/uL (130-400); RED BLOOD COUNT 3.27 10*6/uL (4.50-5.90); RED CELL DISTRI WIDTH 14.4 % (0-14.5); WHITE BLOOD COUNT 8.7 10*3/uL (4.8-10.8)
[2023-03-12 11:01] LABS: URINE CREATININE RANDOM 74.3 mg/dL
[2023-03-12 11:44] LABS: POTASSIUM 3.9 mmol/L (3.4-5.1); TOTAL PROTEIN 6.7 gm/dL (6.0-8.0)
== END | disposition home or self-care (01) ==
LOC: RESCLI 01:45
PROVIDERS: Student in an Organized Health Care Education/Training Program; ATTEND Internal Medicine
DX: E11.42 Type 2 diabetes mellitus with diabetic polyneuropathy (principal); E11.52 Type 2 diabetes mellitus with diabetic peripheral angiopathy with gangrene; I10 Essential (primary) hypertension; E78.5 Hyperlipidemia, unspecified; J44.9 Chronic obstructive pulmonary disease, unspecified; B99.9 Unspecified infectious disease; E55.9 Vitamin D deficiency, unspecified; R53.81 Other malaise; Z95.2 Presence of prosthetic heart valve; Z79.84 Long term (current) use of oral hypoglycemic drugs; Z79.01 Long term (current) use of anticoagulants; Z98.890 Other specified postprocedural states; Z87.891 Personal history of nicotine dependence; Z88.5 Allergy status to narcotic agent; Z91.030 Bee allergy status; Z79.899 Other long term (current) drug therapy

== ENCOUNTER → 2023-03-23 | Outpatient (CLI) | payer MEDICARE | END | disposition home or self-care (01) | LOC: LAB 02:10 | PROVIDERS: ATTEND Student in an Organized Health Care Education/Training Program | DX: D50.9 Iron deficiency anemia, unspecified (principal); Z79.01 Long term (current) use of anticoagulants ==

== ENCOUNTER → 2023-04-04 | Outpatient (CLI) | payer MEDICARE | END | disposition home or self-care (01) | LOC: LAB 02:33 | PROVIDERS: ATTEND Student in an Organized Health Care Education/Training Program | DX: Z95.2 Presence of prosthetic heart valve (principal) ==

== ENCOUNTER → 2023-06-01 | Outpatient (CLI) | payer MEDICARE ==
[2023-06-01 10:22] LABS: BASO # 0.1 10*3/uL (0.0-0.1); BASO % 0.9 % (0.0-1.0); EOS # 0.2 10*3/uL (0.0-0.4); EOS % 2.8 % (1.0-4.0); HEMATOCRIT 26.3 % (42.0-52.0); LYMPH # 1.4 10*3/uL (1.3-4.4); LYMPH % 21.5 % (27.0-41.0); MEAN CORPUSCULAR HGB 24.1 pg (27.0-31.0); MEAN CORPUSCULAR HGB CONC 27.4 g/dl (33.0-37.0); MONO # 0.6 10*3/uL (0.1-1.0); MONO % 8.5 % (3.0-9.0); NEUT # 4.2 10*3/uL (2.3-7.9); NEUT % 65.5 % (47.0-73.0); PLATELET COUNT AUTOMATED 123 10*3/uL (130-400); RED BLOOD COUNT 2.99 10*6/uL (4.50-5.90); RED CELL DISTRI WIDTH 18.3 % (0-14.5); WHITE BLOOD COUNT 6.5 10*3/uL (4.8-10.8)
[2023-06-01 10:54] LABS: TOTAL PROTEIN 6.8 gm/dL (6.0-8.0)
[2023-06-01 10:55] LABS: VITAMIN D, 25-HYDROXY 21.1 ng/mL (30-100)
== END | disposition home or self-care (01) ==
LOC: LAB 02:54
PROVIDERS: ATTEND Nurse Practitioner Primary Care
DX: E11.52 Type 2 diabetes mellitus with diabetic peripheral angiopathy with gangrene (principal); N40.0 Benign prostatic hyperplasia without lower urinary tract symptoms; E55.9 Vitamin D deficiency, unspecified; N30.00 Acute cystitis without hematuria; E78.5 Hyperlipidemia, unspecified; D50.9 Iron deficiency anemia, unspecified; Z95.2 Presence of prosthetic heart valve

== ENCOUNTER → 2023-06-28 | Outpatient (CLI) | payer MEDICARE | END | disposition home or self-care (01) | LOC: LAB 01:27 | PROVIDERS: ATTEND Nurse Practitioner Primary Care | DX: Z95.2 Presence of prosthetic heart valve (principal); Z79.01 Long term (current) use of anticoagulants ==

== ENCOUNTER 2023-07-11 14:01 | Inpatient (IN) | payer MEDICARE ==
[~2023-07-11] VITALS: Ht 183 cm; Wt 130.6 kg
[2023-07-11] VITALS (14 sets, daily range): BP systolic 93–130; BP diastolic 34–72
[2023-07-11 15:00] LABS: HEMATOCRIT 25.2 % (42.0-52.0); MEAN CELL VOLUME 89.7 fl (80.0-94.0); MEAN CORPUSCULAR HGB 24.2 pg (27.0-31.0); MEAN PLATELET VOLUME 11.4 fl (9.6-12.3); PLATELET COUNT AUTOMATED 114 10*3/uL (130-400); RED BLOOD COUNT 2.81 10*6/uL (4.50-5.90); RED CELL DISTRI WIDTH 19.8 % (0-14.5); WHITE BLOOD COUNT 5.2 10*3/uL (4.8-10.8)
[2023-07-11 15:02] LABS: MANUAL DIFF REFLEX YES
[2023-07-11] MEDS ORDERED: Pantoprazole Sodium 40 MG VIAL IV ONE (15:05)
[2023-07-11 15:08] LABS: ACT PARTIAL THROMBO TIME 37.9 SECONDS (20.0-32.1)
[2023-07-11 15:20] LABS: ALKALINE PHOSPHATASE 98 U/L (46-116); BUN 14 mg/dl (9-23); CHLORIDE 110 mmol/L (98-107); POTASSIUM 3.5 mmol/L (3.4-5.1); TOTAL PROTEIN 6.1 gm/dL (6.0-8.0)
[2023-07-11 15:21] LABS: ATYPICAL LYMPHS 1 % (0-0); BASOPHILS 3 % (0-1); PLATELET SUFFICIENCY LOW (NORMAL); TOTAL CELLS COUNTED 100 #CELLS
[2023-07-11 15:22] LABS: BURR CELLS FEW; OVALOCYTES FEW; ROULEAUX SLIGHT
[2023-07-11 15:23] LABS: POLYCHROMASIA SLIGHT; SCHISTOCYTES FEW
[2023-07-11 15:23] LABS: FREE T4 0.93 ng/dl (0.89-1.76)
[2023-07-11 15:28] LABS: SGPT/ALT < 7 U/L (5-49)
[2023-07-11] MEDS ORDERED: FUROSEMIDE 20 MG/2 ML VIAL IV ONE ×3 (15:35→21:40)
[2023-07-11] MEDS ORDERED: LOPRESSOR25 MG PO (15:38)
[2023-07-11] MEDS ORDERED: Magnesium Hydroxide 30 ML UDC PO PRN (16:30)
[2023-07-11] MEDS ORDERED: TEMAZEPAM 15 MG CAP PO PRN (16:30)
[2023-07-11] MEDS ORDERED: DEXTROSE 10 % IN WATER 250 ML IV PRN (16:30)
[2023-07-11] MEDS ORDERED: ACETAMINOPHEN 650 MG SUPP R PRN (16:30)
[2023-07-11] MEDS ORDERED: ACETAMINOPHEN 325 MG TAB PO PRN (16:30)
[2023-07-11] MEDS ORDERED: BISACODYL 10 MG SUPP R PRN (16:30)
[2023-07-11] MEDS ORDERED: Ondansetron Hydrochloride 4 MG/2 ML VIAL IV PRN (16:30)
[2023-07-11] MEDS ORDERED: INSULIN LISPRO 1 UNIT/0.01 ML SQ SCH (16:30)
[2023-07-11] MEDS ORDERED: BISACODYL 5 MG TAB PO PRN (16:30)
[2023-07-11] MEDS ORDERED: SODIUM CHLORIDE 0.9% 500 ML IV ONE (16:54)
[2023-07-11] MEDS ORDERED: IOHEXOL 300 MG/ML 100 ML VIAL IV ONE (17:10)
[2023-07-11] MEDS ORDERED: FUROSEMIDE 20 MG IV ONE (17:20)
[2023-07-11] MEDS ORDERED: ALBUTEROL 8 GM INHALER INH PRN (21:30)
[2023-07-11] MEDS ORDERED: Albuterol Sulfate 2.5 MG/3 ML VIAL NEB PRN (21:40)
[2023-07-11] MEDS ORDERED: GABAPENTIN 100 MG CAP PO SCH (22:00)
[2023-07-11] MEDS ORDERED: Metoprolol Tartrate 25 MG TAB PO SCH (22:00)
[2023-07-12] VITALS: BP 112/47
[2023-07-12] MEDS ORDERED: Pantoprazole Sodium 40 MG TAB PO SCH (06:00)
[2023-07-12 06:28] LABS: HEMATOCRIT 26.2 % (42.0-52.0); MEAN CORPUSCULAR HGB 24.9 pg (27.0-31.0); MEAN PLATELET VOLUME 10.3 fl (9.6-12.3); PLATELET COUNT AUTOMATED 102 10*3/uL (130-400); RED BLOOD COUNT 3.05 10*6/uL (4.50-5.90); RED CELL DISTRI WIDTH 19.2 % (0-14.5); WHITE BLOOD COUNT 4.7 10*3/uL (4.8-10.8)
[2023-07-12 06:35] LABS: MANUAL DIFF REFLEX YES; MEAN CELL VOLUME 85.9 fl (80.0-94.0)
[2023-07-12 06:45] LABS: BUN 16 mg/dl (9-23); CHLORIDE 109 mmol/L (98-107); POTASSIUM 3.4 mmol/L (3.4-5.1)
[2023-07-12 07:26] LABS: BASOPHILS 2 % (0-1); BURR CELLS FEW; OVALOCYTES FEW; PLATELET SUFFICIENCY LOW (NORMAL); POLYCHROMASIA SLIGHT; SCHISTOCYTES FEW; TOTAL CELLS COUNTED 100 #CELLS
[2023-07-12 07:27] LABS: ROULEAUX SLIGHT
[2023-07-12 08:00] VITALS: BP 110/45
[2023-07-12] MEDS ORDERED: FUROSEMIDE 40 MG/4 ML VIAL IV SCH ×2 (08:15→10:00)
[2023-07-12] MEDS ORDERED: PERFLUTREN PROTEIN-A MICROSPHR 3 ML VIAL IV ONE (09:34)
[2023-07-12] MEDS ORDERED: SPIRONOLACTONE 25 MG TAB PO SCH (10:00)
[2023-07-12 12:00] VITALS: BP 117/39
[2023-07-12 12:20] LABS: BF LYMPHOCYTES 20 %; BF MACROPHAGES 44 %; BF MESOTHELIALS 12 %; BF NEUTROPHILS 24 %
[2023-07-12] MEDS ORDERED: ALBUMIN 25% 200 ML IV SCH (14:00)
[2023-07-12] MEDS ORDERED: ALBUMIN 25% 100 ML IV SCH (14:00)
[2023-07-12 16:00] VITALS: BP 106/54
[2023-07-12 20:00] VITALS: BP 109/55
[2023-07-13] VITALS (7 sets, daily range): BP systolic 102–120; BP diastolic 40–56
[2023-07-13 06:14] LABS: BASO # 0.1 10*3/uL (0.0-0.1); BASO % 1.3 % (0.0-1.0); EOS # 0.3 10*3/uL (0.0-0.4); EOS % 5.5 % (1.0-4.0); HEMATOCRIT 25.4 % (42.0-52.0); LYMPH % 21.8 % (27.0-41.0); MEAN CELL VOLUME 83.8 fl (80.0-94.0); MEAN CORPUSCULAR HGB 25.1 pg (27.0-31.0); MEAN CORPUSCULAR HGB CONC 29.9 g/dl (33.0-37.0); MEAN PLATELET VOLUME 11.9 fl (9.6-12.3); MONO # 0.5 10*3/uL (0.1-1.0); NEUT # 2.8 10*3/uL (2.3-7.9); NEUT % 60.5 % (47.0-73.0); PLATELET COUNT AUTOMATED 105 10*3/uL (130-400); RED BLOOD COUNT 3.03 10*6/uL (4.50-5.90); RED CELL DISTRI WIDTH 19.1 % (0-14.5); WHITE BLOOD COUNT 4.6 10*3/uL (4.8-10.8)
[2023-07-13 06:30] LABS: POTASSIUM 3.5 mmol/L (3.4-5.1)
[2023-07-13 12:08] LABS: ACID FAST SPEC PROCESSING Direct Inoculation (.)
[2023-07-13] MEDS ORDERED: WARFARIN SODIUM 2.5 MG TAB PO ONE (17:00)
[2023-07-13] MEDS ORDERED: WARFARIN SODIUM 5 MG TAB PO SCH (18:00)
[2023-07-14] VITALS: BP 104/48; BP 91/40
[2023-07-14 06:41] VITALS: BP 100/44
[2023-07-14 06:41] LABS: BASO % 0.9 % (0.0-1.0); EOS # 0.2 10*3/uL (0.0-0.4); LYMPH # 0.8 10*3/uL (1.3-4.4); LYMPH % 18.7 % (27.0-41.0); MEAN CELL VOLUME 84.7 fl (80.0-94.0); MEAN CORPUSCULAR HGB 25.1 pg (27.0-31.0); MEAN CORPUSCULAR HGB CONC 29.6 g/dl (33.0-37.0); MEAN PLATELET VOLUME 12.6 fl (9.6-12.3); MONO # 0.5 10*3/uL (0.1-1.0); MONO % 10.3 % (3.0-9.0); NEUT # 2.8 10*3/uL (2.3-7.9); PLATELET COUNT AUTOMATED 112 10*3/uL (130-400); RED BLOOD COUNT 2.95 10*6/uL (4.50-5.90); RED CELL DISTRI WIDTH 19.2 % (0-14.5); WHITE BLOOD COUNT 4.4 10*3/uL (4.8-10.8)
[2023-07-14 07:07] LABS: POTASSIUM 3.5 mmol/L (3.4-5.1)
[2023-07-14 08:00] VITALS: BP 80/40
[2023-07-14] MEDS ORDERED: METOLAZONE 5 MG TAB PO ONE (10:15)
[2023-07-14 12:00] VITALS: BP 121/47
[2023-07-14 16:00] VITALS: BP 113/61
[2023-07-14 20:00] VITALS: BP 112/46
[2023-07-15] VITALS: BP 125/51
[2023-07-15 06:05] LABS: HEMATOCRIT 25.5 % (42.0-52.0); MEAN CELL VOLUME 84.2 fl (80.0-94.0); MEAN CORPUSCULAR HGB 25.1 pg (27.0-31.0); MEAN CORPUSCULAR HGB CONC 29.8 g/dl (33.0-37.0); MEAN PLATELET VOLUME 12.4 fl (9.6-12.3); PLATELET COUNT AUTOMATED 104 10*3/uL (130-400); RED BLOOD COUNT 3.03 10*6/uL (4.50-5.90); RED CELL DISTRI WIDTH 18.9 % (0-14.5); WHITE BLOOD COUNT 4.8 10*3/uL (4.8-10.8)
[2023-07-15 06:24] LABS: POTASSIUM 3.3 mmol/L (3.4-5.1)
[2023-07-15 06:48] LABS: MANUAL DIFF REFLEX YES
[2023-07-15 06:52] LABS: ATYPICAL LYMPHS 1 % (0-0); PLATELET SUFFICIENCY LOW (NORMAL); TOTAL CELLS COUNTED 100 #CELLS
[2023-07-15 06:53] LABS: OVALOCYTES FEW; SCHISTOCYTES FEW
[2023-07-15] MEDS ORDERED: POTASSIUM CHLORIDE 20 MEQ TAB PO ONE (07:55)
[2023-07-15] MEDS ORDERED: MAGNESIUM SULFATE 50 ML IV ONE (07:55)
[2023-07-15 08:00] VITALS: BP 120/56
[2023-07-15] MEDS ORDERED: METOLAZONE 5 MG TAB PO ONE (10:55)
[2023-07-15 12:00] VITALS: BP 107/50
[2023-07-15 16:00] VITALS: BP 110/60
[2023-07-15 20:00] VITALS: BP 121/39
[2023-07-16 06:12] LABS: BASO % 0.7 % (0.0-1.0); EOS # 0.4 10*3/uL (0.0-0.4); EOS % 6.4 % (1.0-4.0); HEMATOCRIT 26.4 % (42.0-52.0); LYMPH # 1.1 10*3/uL (1.3-4.4); LYMPH % 19.6 % (27.0-41.0); MEAN CELL VOLUME 83.8 fl (80.0-94.0); MEAN CORPUSCULAR HGB 25.1 pg (27.0-31.0); MEAN CORPUSCULAR HGB CONC 29.9 g/dl (33.0-37.0); MONO # 0.6 10*3/uL (0.1-1.0); MONO % 10.9 % (3.0-9.0); NEUT # 3.5 10*3/uL (2.3-7.9); NEUT % 61.5 % (47.0-73.0); PLATELET COUNT AUTOMATED 121 10*3/uL (130-400); RED BLOOD COUNT 3.15 10*6/uL (4.50-5.90); RED CELL DISTRI WIDTH 19.2 % (0-14.5); WHITE BLOOD COUNT 5.6 10*3/uL (4.8-10.8)
[2023-07-16 06:36] LABS: POTASSIUM 3.9 mmol/L (3.4-5.1)
[2023-07-16 08:00] VITALS: BP 96/60
[2023-07-16] MEDS ORDERED: NA FERRIC GLUC CMPL/SUCROSE 62.5 MG/5 ML VIAL IV SCH (10:00)
[2023-07-16 12:00] VITALS: BP 106/49
[2023-07-16 16:00] VITALS: BP 118/40
[2023-07-16 20:00] VITALS: BP 124/48
[2023-07-17] VITALS: BP 113/55
[2023-07-17 05:06] LABS: HBSAG Negative (Negative); HEP B CORE AB, IGM Negative (Negative); HEPATITIS C ANTIBODY Non Reactive (Non Reactive)
[2023-07-17 07:35] LABS: BASO # 0.1 10*3/uL (0.0-0.1); EOS # 0.4 10*3/uL (0.0-0.4); EOS % 7.5 % (1.0-4.0); HEMATOCRIT 26.4 % (42.0-52.0); LYMPH % 20.4 % (27.0-41.0); MEAN CELL VOLUME 85.2 fl (80.0-94.0); MEAN CORPUSCULAR HGB 24.8 pg (27.0-31.0); MEAN CORPUSCULAR HGB CONC 29.2 g/dl (33.0-37.0); MEAN PLATELET VOLUME 11.4 fl (9.6-12.3); MONO # 0.7 10*3/uL (0.1-1.0); MONO % 12.8 % (3.0-9.0); NEUT # 2.9 10*3/uL (2.3-7.9); NEUT % 57.5 % (47.0-73.0); PLATELET COUNT AUTOMATED 115 10*3/uL (130-400); WHITE BLOOD COUNT 5.1 10*3/uL (4.8-10.8)
[2023-07-17 08:00] VITALS: BP 115/50; BP 123/46
[2023-07-17 08:04] LABS: POTASSIUM 3.8 mmol/L (3.4-5.1)
[2023-07-17] MEDS ORDERED: FUROSEMIDE40 MG PO (09:55)
[2023-07-17] MEDS ORDERED: WARFARIN SODIUM4 MG PO (09:55)
[2023-07-17] MEDS ORDERED: FUROSEMIDE 40 MG TAB PO SCH (10:00)
== END 2023-07-17 12:30 | disposition home health service (06) | DRG 291 ==
LOC: ED 14:01 → 4E 15:49 → EDHOLD 15:49 → 4E 16:12
PROVIDERS: Internal Medicine; Registered Nurse; Student in an Organized Health Care Education/Training Program; ADMIT Internal Medicine; ATTEND Internal Medicine
PROC: 30233N1 Transfusion of Nonautologous Red Blood Cells into Peripheral Vein, Percutaneous Approach (ICD-10-PCS; principal; 2023-07-11)
PROC: 0W9G3ZZ Drainage of Peritoneal Cavity, Percutaneous Approach (ICD-10-PCS; 2023-07-12)
DX: I13.0 Hypertensive heart and chronic kidney disease with heart failure and stage 1 through stage 4 chronic kidney disease, or unspecified chronic kidney disease (principal); I50.33 Acute on chronic diastolic (congestive) heart failure; K57.31 Diverticulosis of large intestine without perforation or abscess with bleeding; R18.8 Other ascites; E44.0 Moderate protein-calorie malnutrition; N17.9 Acute kidney failure, unspecified; Z68.41 Body mass index [BMI] 40.0-44.9, adult; K74.60 Unspecified cirrhosis of liver; E86.1 Hypovolemia; D69.6 Thrombocytopenia, unspecified; E87.8 Other disorders of electrolyte and fluid balance, not elsewhere classified; I86.8 Varicose veins of other specified sites; E11.65 Type 2 diabetes mellitus with hyperglycemia; J44.9 Chronic obstructive pulmonary disease, unspecified; N40.0 Benign prostatic hyperplasia without lower urinary tract symptoms; N18.32 Chronic kidney disease, stage 3b; E66.01 Morbid (severe) obesity due to excess calories; E78.2 Mixed hyperlipidemia; I45.10 Unspecified right bundle-branch block; G47.33 Obstructive sleep apnea (adult) (pediatric); E11.22 Type 2 diabetes mellitus with diabetic chronic kidney disease; Z96.653 Presence of artificial knee joint, bilateral; D63.8 Anemia in other chronic diseases classified elsewhere; Z79.4 Long term (current) use of insulin; Z95.2 Presence of prosthetic heart valve; Z90.49 Acquired absence of other specified parts of digestive tract; Z89.432 Acquired absence of left foot; Z82.49 Family history of ischemic heart disease and other diseases of the circulatory system; Z88.5 Allergy status to narcotic agent; Z91.030 Bee allergy status; Z79.51 Long term (current) use of inhaled steroids; Z79.84 Long term (current) use of oral hypoglycemic drugs; Z79.01 Long term (current) use of anticoagulants; Z79.899 Other long term (current) drug therapy; Z87.891 Personal history of nicotine dependence

== ENCOUNTER 2023-08-20 11:46 | Emergency (ER) | payer MEDICARE ==
[~2023-08-20] VITALS: Ht 182.8 cm; Wt 120.2 kg
[~2023-08-20 11:46] MED LIST changes: +FUROSEMIDE40 MG PO; +LOPRESSOR25 MG PO; +WARFARIN SODIUM4 MG PO
[2023-08-20 12:43] LABS: MEAN CORPUSCULAR HGB 25.6 pg (27.0-31.0); MEAN CORPUSCULAR HGB CONC 29.1 g/dl (33.0-37.0); MEAN PLATELET VOLUME 12.2 fl (9.6-12.3); PLATELET COUNT AUTOMATED 113 10*3/uL (130-400); RED BLOOD COUNT 2.34 10*6/uL (4.50-5.90); RED CELL DISTRI WIDTH 19.9 % (0-14.5); WHITE BLOOD COUNT 5.4 10*3/uL (4.8-10.8)
[2023-08-20] MEDS ORDERED: AMOXICILLIN500 M3 PO (12:48)
[2023-08-20 12:49] LABS: ACT PARTIAL THROMBO TIME 36.7 SECONDS (20.0-32.1)
[2023-08-20] MEDS ORDERED: GABAPENTIN100 M2 PO (12:49)
[2023-08-20] MEDS ORDERED: Coumadin2 MG PO (12:49)
[2023-08-20] MEDS ORDERED: ANORO ELLIPTA1 EACH INH (12:50)
[2023-08-20] MEDS ORDERED: METFORMIN HYDR500 MG PO (12:50)
[2023-08-20] MEDS ORDERED: GLIPIZIDE5 MG PO (12:51)
[2023-08-20] MEDS ORDERED: LIPITOR40 MG PO (12:51)
[2023-08-20] MEDS ORDERED: IRON325 M1 PO (12:52)
[2023-08-20] MEDS ORDERED: LASIX20 MG PO (12:52)
[2023-08-20 12:58] LABS: ALKALINE PHOSPHATASE 89 U/L (46-116); BUN 45 mg/dl (9-23); CHLORIDE 104 mmol/L (98-107); LIPASE 63 U/L (12-53); POTASSIUM 3.4 mmol/L (3.4-5.1); SGPT/ALT 9 U/L (5-49); TOTAL PROTEIN 6.6 gm/dL (6.0-8.0)
[2023-08-20 13:07] LABS: HEMATOCRIT 20.6 % (42.0-52.0)
[2023-08-20 13:09] LABS: MANUAL DIFF REFLEX YES
[2023-08-20 13:13] LABS: ATYPICAL LYMPHS 2 % (0-0); BASOPHILS 1 % (0-1); TOTAL CELLS COUNTED 100 #CELLS
[2023-08-20 13:14] LABS: PLATELET SUFFICIENCY LOW (NORMAL)
[2023-08-20 13:15] LABS: OVALOCYTES FEW
[2023-08-20] MEDS ORDERED: FUROSEMIDE 20 MG/2 ML VIAL IV SCH (13:30)
[2023-08-20] MEDS ORDERED: SODIUM CHLORIDE 0.9% 100 ML IV ONE ×2 (13:56→15:33)
[2023-08-20 17:49] LABS: HEMATOCRIT 25.8 % (42.0-52.0)
== END 2023-08-20 18:39 | disposition home or self-care (01) ==
LOC: ED 11:46
PROVIDERS: Internal Medicine
DX: D64.9 Anemia, unspecified (principal); I95.9 Hypotension, unspecified; R53.1 Weakness; I50.9 Heart failure, unspecified; I10 Essential (primary) hypertension; J44.9 Chronic obstructive pulmonary disease, unspecified; E78.00 Pure hypercholesterolemia, unspecified; E11.40 Type 2 diabetes mellitus with diabetic neuropathy, unspecified; Z91.030 Bee allergy status; Z88.5 Allergy status to narcotic agent; Z96.653 Presence of artificial knee joint, bilateral; Z98.890 Other specified postprocedural states; Z90.49 Acquired absence of other specified parts of digestive tract; Z87.891 Personal history of nicotine dependence

== ENCOUNTER → 2023-10-08 | Outpatient (CLI) | payer MEDICARE ==
[~2023-10-08] MED LIST changes: +ANORO ELLIPTA1 EACH INH; +Coumadin2 MG PO; +IRON325 M1 PO; +LASIX20 MG PO; +LIPITOR40 MG PO; +METFORMIN HYDR500 MG PO
== END | disposition home or self-care (01) ==
LOC: ORTHO 01:46
PROVIDERS: ATTEND Orthopaedic Surgery
DX: M25.561 Pain in right knee (principal)